=== PATIENT | female | born 1985 | race Caucasian/White ===

== ENCOUNTER 2021-05-21 16:41 | Outpatient (REF) | payer OTHER, SELFPAY ==
[2021-05-21 17:31] LABS: Influenza A PCR NEGATIVE (Negative); Influenza B PCR NEGATIVE (Negative); Resp Syncy Virus RNA Qual PCR NEGATIVE (Negative); SARS COV2 PCR INHOUSE NEGATIVE (Negative)
== END 2021-05-21 16:42 | disposition home or self-care (01) ==
LOC: HO.LNP 16:41
PROVIDERS: Visit Provider Internal Medicine
DX: R43.9 Unspecified disturbances of smell and taste (principal); Z20.822 Contact with and (suspected) exposure to COVID-19
CPT/HCPCS: 0241U

== ENCOUNTER 2022-01-11 14:26 | Outpatient (REF) | payer OTHER, SELFPAY ==
[2022-01-11 14:50] LABS: Binax Internal Control QC Valid; Binax Now Covid-19 Ag Positive (Negative)
== END 2022-01-11 14:27 | disposition home or self-care (01) ==
LOC: HO.HMGCLDS 14:26
PROVIDERS: Visit Provider Physician Assistant Medical
DX: Z20.822 Contact with and (suspected) exposure to COVID-19 (principal)
CPT/HCPCS: 87811

== ENCOUNTER 2022-08-05 11:14 | Outpatient (REF) | payer OTHER, SELFPAY | END 2022-08-05 11:15 | disposition home or self-care (01) | LOC: HO.LAB 11:14 | PROVIDERS: Visit Provider Nurse Practitioner Family | DX: R39.15 Urgency of urination (principal) | CPT/HCPCS: 87086 ==

== ENCOUNTER 2023-01-31 12:34 | Outpatient (AMB) | payer OTHER, SELFPAY ==
--- NOTE | 2023-01-31 12:51 | AM.OFFWIN_ITS ---
Intake Vital Signs 01/31/23 12:54 Height 5 ft 8 in BP 106/70 Blood Pressure Location Rt brachial Position Standing Pulse 76 Pulse Source Pulse Oximeter Pulse Oximetry (%) 98 Intake Visit Reasons: EP Back swelling, can't bend (lobby) Intake Note: pt is here for back swelling, unable to sit or bend Patient Tobacco Use Status: Current everyday Tobacco user (vape) Allergies Penicillins Allergy (Unknown, Verified 01/31/23 13:12) RASH Medication List - Last Reconciled 01/31/23 by Akshat Cruz PA-C oxybutynin chloride 5 mg PO TID phenazopyridine mg PO Do you need a note to return to daycare/school/sports/work: Yes HPI EP Back swelling, can't bend (lobby) HPI Details Patient is a 37 year female here today complaining lower back swelling and inability to bend her lower lumbar spine. Having hard time standing or sitting for long periods of time. She reports she has a chronic history of degenerative disc disease in her lumbar spine. Has seen shipping and receiving specialist in the past. Is followed by chiropractic specialist. She reports having at least 2 back pain flare-ups per ear causing her major dysfunction in her activities daily living. Usually uses muscle relaxers and ibuprofen for her pain. [facility] Social History Patient Tobacco Use Status: Current everyday Tobacco user (vape) Review of Systems Const Denies headache(s) Eyes Denies loss of vision ENT Denies vertigo, Denies dizziness, Denies headache(s) and Denies sore throat Card Denies chest pain, Denies leg edema and Denies lightheadedness Resp Denies cough, Denies hemoptysis and Denies wheezing GI Denies abdominal pain, Denies melena, Denies constipation, Denies diarrhea and Denies vomiting Denies urinary frequency, Denies dysuria and Denies urinary urgency Musc Details: Lower back stiffness Reports back pain, Denies arthralgias, Denies joint swelling, Denies numbness and Denies tingling Neuro Denies Abnormal speech present, Denies behavioral changes, Denies vertigo, Denies dizziness, Denies headache(s), Denies loss of vision, Denies memory loss, Denies numbness and Denies tingling Psych Denies anxiety, Denies behavioral changes, Denies depression, Denies memory loss and Denies panic attacks Roland/Lymph Denies easy bleeding and Denies easy bruising Aller/Immun Denies wheezing Physical Exam Vital Signs: Last Vital Signs Pulse 76 01/31/23 12:54 BP 106/70 01/31/23 12:54 Pulse Ox 98 01/31/23 12:54 Const General: healthy appearing, no acute distress, alert and awake Nutritional Appearance: well nourished Orientation/consciousness: oriented to person, oriented to place and oriented to time HEENT Ears: TM's normal bilaterally General nose exam: Normal nasal mucous membranes and turbinates present Eyes Conjunctivae: conjunctivae normal Sclerae: sclerae normal Pupils: Equal, round and reactive pupils present Neck Neck: Yes no lymphadenopathy and Yes no JVD Thyroid: Thyroid normal Carotids: no bruits Resp Effort & Inspection: normal respiratory effort and not tachypneic Auscultation: no crackles, no rales, no rhonchi and no wheezes Cardio Rate: regular rate Rhythm: regular rhythm Heart sounds: no murmurs and normal S1 and S2 GI Palpation (GI): Soft to palpation, nontender, no hepatomegaly and no splenomegaly Auscultation: normal bowel sounds Back/Spine/Pelvis Other: PATIENT SITTING IN POSITION OF COMFORT, UNABLE TO BEND AT WAIST DUE TO PAIN AND STIFFNESS HER LUMBAR SPINE. Left lower extremity 4-5 strength as compared to 5/5 strength over right lower extremity Skin General skin exam: no rashes or lesions noted and dry skin Neuro General: oriented to person, oriented to place and oriented to time Cranial nerves: Yes Equal, round and reactive pupils present Speech: No Abnormal speech present Gait exam (Neuro): Normal gait present Motor exam (neuro): no tremor noted Extrem Right upper extremity: full ROM Left upper extremity: full ROM Right lower extremity: full ROM; no edema Left lower extremity: full ROM; no edema Psych Mental Status: mental status grossly normal Speech and movement: Normal speech and movement present Affect: normal affect Attitude: cooperative Thought process: Normal thought process present Assessment & Plan Assessment & Plan (1) DDD (degenerative disc disease), lumbar: Code(s): M51.36 - Other intervertebral disc degeneration, lumbar region Plan: Patient with a chronic history of DDD in the Lumbar spine having a flare at this time. Will supply with muscle relaxer, prednisone taper and NSAID to use on a p.r.n. basis. Advised to follow up PCP about FMLA and perhaps getting set up with a back specialist again. Medications: New prednisone 10 mg PO DAILY 9 days 18 tabs 0RF M51.36 - Other intervertebral disc degeneration, lumbar region ibuprofen 800 mg PO Q8H 7 days PRN 21 tabs 0RF pain M51.36 - Other intervertebral disc degeneration, lumbar region cyclobenzaprine 10 mg PO BEDTIME 7 days 7 tabs 0RF M51.36 - Other intervertebral disc degeneration, lumbar region Coding Level of Care Code Est Pt Level 3 (96087) Diagnoses DDD (degenerative disc disease), lumbar M51.36
[2023-01-31 12:54] VITALS: BP 106/70; PULSE 76; O2SAT 98
== END 2023-01-31 14:13 | disposition home or self-care (01) ==
PROVIDERS: PCP Internal Medicine; Visit Provider Physician Assistant
DX: M51.36 Other intervertebral disc degeneration, lumbar region (principal)
CPT/HCPCS: 99051; 99213

== ENCOUNTER 2023-10-27 08:12 | Outpatient (AMB) | payer OTHER, SELFPAY ==
[2023-10-27 09:04] VITALS: BP 116/72; PULSE 80; TEMP 36.3; O2SAT 98; BMI 35.9
--- NOTE | 2023-10-27 09:04 | AM.OFFWIN_ITS ---
Intake Vital Signs 10/27/23 09:04 Height 5 ft 8 in Weight 236 lb BMI 35.9 BP 116/72 Blood Pressure Location Lt brachial Position Sitting Pulse 80 Pulse Source Pulse Oximeter Temp 97.3 F Temp Source Temporal Artery Scan Pulse Oximetry (%) 98 Oxygen Delivery Method Room Air Intake Visit Reasons: EP Fever, hot/cold flashes,sore [id number] Intake Note: pt is here today for fever hot and cold flashes sore throat started thursday Patient Tobacco Use Status: Current everyday Tobacco user (vape) Allergies Penicillins Allergy (Unknown, Verified 10/27/23 09:55) RASH Medication List - Last Reconciled 10/27/23 by Wayne Stanton MD cyclobenzaprine 10 mg PO BEDTIME 7 days ibuprofen 800 mg PO Q8H PRN 7 days oxybutynin chloride 5 mg PO TID phenazopyridine mg PO Do you need a note to return to daycare/school/sports/work: Yes HPI EP Fever, hot/cold flashes,sore [id number] HPI Details 38-year-old female presents to the [facility] for a sick visit. Patient tested positive for COVID yesterday. Her symptoms include leg pain, sore throat and fatigue. [facility] Social History Patient Tobacco Use Status: Current everyday Tobacco user (vape) Physical Exam Vital Signs: Last Vital Signs Temp 97.3 F 10/27/23 09:04 Pulse 80 10/27/23 09:04 BP 116/72 10/27/23 09:04 Pulse Ox 98 10/27/23 09:04 Oxygen Delivery Method Room Air 10/27/23 09:04 BMI result Body Mass Index 35.9 Const General: cooperative and healthy appearing Nutritional Appearance: well nourished Orientation/consciousness: patient oriented x3 Limitations: no limitations HEENT Head: Yes normal to inspection Eyes General: appearance normal, both eyes and all related structures Neck Neck: Yes normal visual inspection Chest Chest palpation & inspection: normal palpation of entire chest wall Resp Effort & Inspection: normal respiratory effort Neuro General: patient oriented x3 Results AMB Rapid Strep AMB Rapid Strep Negative Last Edit by Travis Painter CMA on 10/27/23 09 :22 Results Reviewed Results Reviewed: Laboratory Last Values Strep Scn Rapid Clinic Negative 10/27/23 09:21 Assessment & Plan Assessment & Plan (1) Upper respiratory tract infection: Code(s): J06.9 - Acute upper respiratory infection, unspecified Plan: Increase fluid intake. Tylenol for aches and pains. If symptoms worsen, follow-up here for a recheck. Patient declines Paxlovid. Viral swab tested. Will call with the results. Note for work given. Orders: Orders AMB Rapid Strep Screen Today Z13.9 - Encounter for screening, unspecified SARS-CoV2/FLU/RSV Today R43.9 - Unspecified disturbances of smell and taste Coding Level of Care Code Est Pt Level 3 (59298) Diagnoses Upper respiratory tract infection J06.9
== END 2023-10-27 10:05 | disposition home or self-care (01) ==
PROVIDERS: PCP Internal Medicine; Visit Provider Internal Medicine
DX: Z13.9 Encounter for screening, unspecified (principal); J06.9 Acute upper respiratory infection, unspecified
CPT/HCPCS: 87880; 99213

== ENCOUNTER 2023-10-27 09:46 | Outpatient (REF) | payer OTHER, SELFPAY ==
[2023-10-27 14:37] LABS: Influenza A PCR NEGATIVE (Negative); Influenza B PCR NEGATIVE (Negative); Resp Syncy Virus RNA Qual PCR NEGATIVE (Negative); SARS COV2 PCR INHOUSE POSITIVE (Negative)
== END 2023-10-27 09:47 | disposition home or self-care (01) ==
LOC: HO.LAB 09:46
PROVIDERS: Visit Provider Internal Medicine
DX: R43.9 Unspecified disturbances of smell and taste (principal)
CPT/HCPCS: 0241U

== ENCOUNTER 2024-06-24 10:18 | Outpatient (AMB) | payer OTHER, SELFPAY ==
--- NOTE | 2024-06-24 10:35 | MHC.OFFWIV ---
Intake Vital Signs 06/24/24 10:45 Height 5 ft 8 in Weight 228 lb BMI 34.7 BP 122/80 Blood Pressure Location Lt brachial Position Sitting Pulse 81 Pulse Source Pulse Oximeter Temp 97.8 F Temp Source Oral Pulse Oximetry (%) 98 Oxygen Delivery Method Room Air Intake Visit Reasons: EP ? tooth/mouth infection Intake Note: Patient here for tooth infection that started yesterday. Patient Tobacco Use Status: Current everyday Tobacco user (vape) Allergies Penicillins Allergy (Unknown, Verified 06/24/24 10:46) RASH Do you need a note to return to daycare/school/sports/work: No HPI HPI Comments History of Present Illness Details History of Present Illness The patient is a 38-year-old female presenting with a tooth infection. She reports the onset of symptoms starting 5 days ago. The condition has progressed, leading to severe throbbing pain described as zingy and swelling localized to the upper left side of the mouth. Initially, the pain was mild but exacerbated over time, becoming intolerable starting 2 days ago. The patient applied an ice pack and took [id number] analgesics like Advil, which only provided slight relief. The swelling is visible and hot to touch, and the pain radiates down to the ear, causing pulsating sensations at times. The patient consulted her dentist, but due to existing crowns, complicated local treatment options such as a root canal. The patient has been trying to arrange care with a specialist who accepts her insurance, but there are only two available in her local area, and they are experiencing scheduling delays. The patient also mentioned having three small children and an overnight job, indicating significant disruption to her daily life due to this infection. Physical Exam General: Cooperative, healthy appearing, comfortable, no acute distress and well developed Orientation: Patient oriented x3 Limitations: No limitations Head: Normal to inspection Mouth: left upper molar has erythema and edema, slight swelling of face noted, Ears: Hearing grossly normal bilaterally, but patient reports pulsating sensation in the ear Nose: Normal external nose present Face and sinus: Swollen appearance on the left side of the face Eyes: Appearance normal, both eyes and all related structures Neck: Normal visual inspection and Yes full ROM Respiratory: Normal respiratory effort and able to speak in complete sentences. Skin: No rashes or lesions noted Neuro: Patient oriented x3 Extremities: Normal to inspection [facility] Social History Patient Tobacco Use Status: Current everyday Tobacco user (vape) Review of Systems Const All systems reviewed & are unremarkable except as noted in HPI and below Physical Exam Vital Signs: Last Vital Signs Temp 97.8 F 06/24/24 10:45 Pulse 81 06/24/24 10:45 BP 122/80 06/24/24 10:45 Pulse Ox 98 06/24/24 10:45 Oxygen Delivery Method Room Air 06/24/24 10:45 BMI result Body Mass Index 34.7 Assessment & Plan Assessment & Plan (1) Dental infection: Code(s): K04.7 - Periapical abscess without sinus Plan: Plan 1. Acute Tooth Infection: Administer Clindamycin 450 mg three times daily for seven days considering penicillin allergy. The medication is expected to manage the infection until more definitive dental intervention can be scheduled. Italian Lecturer the patient on potential side effects, particularly the risk of gastrointestinal disturbances and yeast infections. Sent diflulcan as pt states she typically will get a yeast infection after antibiotic use. 2. Follow-up with dentist specialist: Encourage the patient to maintain communication with the dental specialist for potential urgent dental procedures, such as a root canal, once availability permits. The patient is advised to call daily to check for cancellations and emergency openings. 3. Pain management: Continue the use of [id number] analgesics for pain relief as needed. Patient was informed and verbally consented to the use of an ambient scribe for clinic note documentation during this visit. Medications: New fluconazole may repeat second dose 72 hrs after first dose if symptoms persist 150 mg PO Q3D 2 tabs 0RF clindamycin HCl 450 mg (3 x 150 mg) PO Q8H 21 caps 0RF Coding Level of Care Code New Pt Level 3 (14821) Diagnoses Dental infection K04.7
[2024-06-24 10:45] VITALS: BP 122/80; PULSE 81; TEMP 36.6; O2SAT 98; BMI 34.7
== END 2024-06-24 11:20 | disposition home or self-care (01) ==
PROVIDERS: PCP Internal Medicine; Visit Provider Physician Assistant
DX: K04.7 Periapical abscess without sinus (principal)

== ENCOUNTER → 2024-06-24 10:18 | Outpatient (BNVA) | payer OTHER, SELFPAY | PROVIDERS: PCP Internal Medicine; Visit Provider Physician Assistant | DX: K04.7 Periapical abscess without sinus (principal) | CPT/HCPCS: 99202 ==